=== PATIENT | male | born 1995 | race Caucasian/White ===

== ENCOUNTER 2020-04-05 02:15 | Emergency (ER) | payer OTHER ==
[~2020-04-05 02:15] MED LIST: CLARITIN10 M2 PO; CLINDAMYCIN HC300 MG PO; IBU800 MG PO; IBUPROFEN600 MG PO; IBUPROFEN800 MG PO; MEDROL DOSEPAK 24 MG PO
== END 2020-04-05 03:00 | disposition home or self-care (01) ==
LOC: ER1 02:15
DX: H57.89 Other specified disorders of eye and adnexa (principal); H53.8 Other visual disturbances; F17.210 Nicotine dependence, cigarettes, uncomplicated; W89.0XXA Exposure to welding light (arc), initial encounter
CPT/HCPCS: 99283